=== PATIENT | female | born 1935 | race Caucasian/White ===

== ENCOUNTER 2017-07-28 19:15 | Emergency (ER) | payer OTHER, MEDICARE ==
[~2017-07-28] VITALS: Ht 152.4 cm; Wt 40.9 kg
[~2017-07-28 19:15] MED LIST: ADULT LOW DOSE81 M1 PO; ALEVE220 M2 PO; ALPRAZOLAM0.25 M2 PO; ALPRAZOLAM0.5 MG PO; AMLODIPINE BESYL5 MG PO; APRESOLINE50 MG PO; ARICEPT10 MG PO; ARICEPT5 MG PO; ASPIR-LOW81 MG PO; ASPIRIN325 MG; ASPIRIN325 MG PO; ATENOLOL25 MG PO; ATIVAN0.5 MG PO; BUSPAR10 MG PO; BUSPAR5 MG PO; BUSPIRONE HCL10 MG PO; CENTRUM ULTRA1 EAC1 PO; COLACE100 MG PO; EFFEXOR XR150 MG PO; EFFEXOR75 MG PO; GENACOTE325 MG PO; HYDROCHLOROTHIA25 MG PO; KEFLEX500 MG PO; KENALOG,ARISTOC80 GM TP; LEVOTHROID25 MCG PO; LEVOTHYROXINE25 MCG PO; LEXAPRO10 MG PO; LIPITOR10 MG PO; LISINOPRIL40 MG PO; LOPRESSOR25 MG PO; LOW DOSE ASPIRI81 M2 PO; METFORMIN HCL1000 MG PO; METOPROLOL TART25 MG PO; MICRONASE2.5 MG PO; MIRALAX255 GM PO; MULTI VITAMIN PO; POLY-VI-SOL1 ML PO; PREDNISONE20 MG PO; PROZAC20 MG PO; PROZAC40 MG PO; SEROQUEL12.5 MG PO; SEROQUEL50 MG PO; SERTRALINE HCL50 MG PO; SILVADENE20 GM TP; SIMVASTATIN40 M1 PO; TENORMIN25 MG PO; TRAZODONE HCL50 MG PO; TYLENOL EXTRA500 MG PO; VENLAFAXINE HC150 M1 PO; VENLAFAXINE HCL75 M3 PO; VITAMIN D31000 UNI2 PO; ZESTRIL40 MG PO; ZOLOFT100 MG PO
[2017-07-28 20:51] VITALS: BP 188/66
== END 2017-07-28 20:52 | disposition home or self-care (01) ==
LOC: EME 19:15
DX: S00.01XA Abrasion of scalp, initial encounter (principal); W18.30XA Fall on same level, unspecified, initial encounter; Y92.129 Unspecified place in nursing home as the place of occurrence of the external cause; F03.90 Unspecified dementia, unspecified severity, without behavioral disturbance, psychotic disturbance, mood disturbance, and anxiety; I10 Essential (primary) hypertension; E78.5 Hyperlipidemia, unspecified; J45.909 Unspecified asthma, uncomplicated; E03.9 Hypothyroidism, unspecified; F41.9 Anxiety disorder, unspecified; F32.9 Major depressive disorder, single episode, unspecified; Z87.891 Personal history of nicotine dependence
CPT/HCPCS: 99281; 99284

== ENCOUNTER 2017-12-23 21:42 | Emergency (ER) | payer OTHER, MEDICARE ==
[~2017-12-23] VITALS: Ht 165.1 cm; Wt 55.3 kg
[~2017-12-23 21:42] MED LIST changes: -BUSPAR10 MG PO
[2017-12-23 22:38] LABS: BASOPHIL (%) 0.8 % (0-1); BASOPHIL COUNT 0.1 K/uL (0-0.1); EOSINOPHIL (%) 0.7 % (0-5); EOSINOPHIL COUNT 0.1 K/uL (0-0.3); HEMATOCRIT 31.4 % (36.0-46.0); HEMOGLOBIN 10.3 G/DL (11.9-15.5); IMMATURE GRANULOCYTE (%) 2.1 % (0.0-0.7); LYMPHOCYTE (%) 12.8 % (15-42); MCH 30.5 PG (29.0-34.0); MCHC 32.8 G/DL (30.0-36.0); MCV 92.9 FL (83-99); MONOCYTE (%) 6.8 % (3-12); MONOCYTE COUNT 1.1 K/uL (0-0.8); NEUTROPHIL (%) 76.8 % (45-76); NEUTROPHIL COUNT 12.1 K/uL (1.8-6.4); PLATELET COUNT 302 K/uL (156-360); RBC DIS.WIDTH-CV 13.6 % (11.8-14.6); RBC DIS.WIDTH-SD 46.5 % (39-53); RED BLOOD COUNT 3.38 M/uL (3.80-5.20); WHITE BLOOD COUNT 15.8 K/uL (4.1-10.2)
[2017-12-23 22:51] LABS: ALBUMIN 3.9 g/dL (3.2-4.8); CHLORIDE 102 mEq/L (99-109); POTASSIUM 5.3 mEq/L (3.7-5.4); SODIUM 142 mEq/L (136-147)
[2017-12-23 22:54] LABS: GLUCOSE 189 mg/dL (70-99); TOTAL PROTEIN 6.8 g/dL (6.4-8.3)
[2017-12-23 22:56] LABS: TOTAL BILIRUBIN 0.2 mg/dL (0.0-1.0)
[2017-12-23 22:57] LABS: ALKALINE PHOSPHATASE 115 IU/L (3-129); CREATININE 2.1 mg/dL (0.6-1.3); GFR ESTIMATE (CALCULATED) 24 mL/min/
[2017-12-23 22:58] LABS: UREA NITROGEN (BUN) 59 mg/dL (9-23)
[2017-12-23 22:59] LABS: AST (GOT) 19 IU/L (2-34)
[2017-12-23 23:00] LABS: ALT (GPT) 18 IU/L (3-49); CREATINE KINASE 98 IU/L (1-294)
[2017-12-23 23:03] LABS: TROP-I INTERPRETATION NEGATIVE; TROPONIN-I < 0.01 ng/mL (0.0-0.30)
[2017-12-23 23:13] VITALS: BP 144/69
[2017-12-24 00:05] LABS: APPEARANCE TURBID ((CLEAR)); BILIRUBIN NEGATIVE; BLOOD LARGE; COLOR YELLOW ((YELLOW)); GLUCOSE (STRIP) NEGATIVE; KETONES NEGATIVE; LEUKOCYTES LARGE; NITRITE NEGATIVE; PROTEIN (STRIP) 100; SPECIFIC GRAVITY 1.014 (1.000-1.030); UROBILINOGEN 0.2 MG/DL (0.2-1.0)
[2017-12-24] MEDS ORDERED: DULCOLAX10 MG PR (00:14)
[2017-12-24] MEDS ORDERED: PHILLIPS'400 MG/5 M PO (00:14)
[2017-12-24] MEDS ORDERED: SALINE PR (00:15)
[2017-12-24] MEDS ORDERED: NORVASC5 MG PO (00:17)
[2017-12-24] MEDS ORDERED: IRON325 M1 PO (00:18)
[2017-12-24] MEDS ORDERED: DEPAKOTE125 MG PO (00:18)
[2017-12-24] MEDS ORDERED: REMERON15 M2 PO (00:19)
[2017-12-24] MEDS ORDERED: VITAMIN D32000 UNI1 PO (00:20)
[2017-12-24] MEDS ORDERED: TYLENOL EXTRA500 MG PO (00:21)
[2017-12-24] MEDS ORDERED: MORPHINE CON20 MG/M1 PO (00:22)
[2017-12-24 00:54] LABS: WHITE BLOOD CELLS TNTC /HPF (0-5)
[2017-12-24] MEDS ORDERED: KEFLEX500 MG PO (01:38)
== END 2017-12-24 02:53 ==
LOC: EME → EDBD 21:42 → EME 21:42 → EDOF 12-24 00:56 → EME 12-24 02:53
PROVIDERS: Emergency Medicine
PROC: 0HQ0XZZ Repair Scalp Skin, External Approach (ICD-10-PCS; principal; 2017-12-23)
DX: N17.9 Acute kidney failure, unspecified (principal); N39.0 Urinary tract infection, site not specified; S01.01XA Laceration without foreign body of scalp, initial encounter; W18.30XA Fall on same level, unspecified, initial encounter; Y93.02 Activity, running; Y92.129 Unspecified place in nursing home as the place of occurrence of the external cause; F03.91 Unspecified dementia, unspecified severity, with behavioral disturbance; J45.909 Unspecified asthma, uncomplicated; E11.9 Type 2 diabetes mellitus without complications; I10 Essential (primary) hypertension; E78.5 Hyperlipidemia, unspecified; E03.9 Hypothyroidism, unspecified; F32.9 Major depressive disorder, single episode, unspecified; F41.9 Anxiety disorder, unspecified; Z87.891 Personal history of nicotine dependence
CPT/HCPCS: 70450; 72125; 80053; 81003; 82550; 84484; 85025; 85610; 93005